=== PATIENT | male | born 1950 | race Caucasian/White ===

== ENCOUNTER 2023-12-14 13:33 | Emergency (ER) | payer MEDICARE, OTHER ==
[~2023-12-14] VITALS: Ht 175.3 cm; Wt 59.9 kg
[2023-12-14 13:33] VITALS: BP 155/57; PULSE 63; RESP 22; TEMP 98.5; O2SAT 88
[2023-12-14 14:07] LABS: HEMATOCRIT(ML) 32.2 % (37.0-53.0); MEAN CORP HGB 30.3 pg (26-34); MEAN CORP HGB CONCENTRATION 31.1 g/dL (33-36.5); MEAN CORP VOLUME 97.6 fL (78-100); RED BLOOD CELL 3.3 10^6/uL (4.50-5.90); RED CELL DISTRIBUTION WIDTH 17.2 % (11.5-14.5); WHITE BLOOD CELL 5.4 10^3/uL (4.5-11.0)
[2023-12-14 14:38] LABS: ALBUMIN(ML) 2.9 g/dL (3.4-5.0); ALBUMIN/GLOBULIN RATIO 0.725; ANION GAP 15.5; BUN/CREATININE RATIO 7.05 (10.0-20.0); CALCIUM 8.5 mg/dL (8.4-10.5); CARBON DIOXIDE 23.3 mmol/L (20.0-32); CREATININE SERUM 3.26 mg/dL (0.59-1.40); EST GFR, NON-AA 18.6 (>/=60); POTASSIUM 2.8 mmol/L (3.6-5.2)
[2023-12-14 15:39] LABS: APPEARANCE,URINE CLEAR; BILIRUBIN,URINE NEGATIVE (NEGATIVE); LEUKOCYTE ESTERASE ,URINE NEGATIVE (NEGATIVE); NITRATE,URINE NEGATIVE (NEGATIVE); UA COLOR YELLOW; UROBILINOGEN,URINE 0.2 E.U./dL (0.2)
[2023-12-14] MEDS ORDERED: ROCEPHIN ONE (15:45)
[2023-12-14] MEDS ORDERED: NS 1000ML/KCL 20MEQ 1,000 ML IV ONE (15:45)
[2023-12-14] MEDS ORDERED: KLOR-CON 10 PO ONE (15:45)
[2023-12-14 15:47] LABS: UAMPH METHAMP(SCRN) NEGATIVE (co1000ng/mL); UR MDMA (ECSTASY) SCRN NEGATIVE (c/o300ng/mL); UR METHADONE SCRN NEGATIVE (c/o300ng/mL); UR OPIATE SCRN NEGATIVE (c/o300ng/mL); UR PHENCYCLIDINE (PCP) SCRN NEGATIVE (c/o 25ng/mL); UR TETRAHYDROCANNABINOL SCRN NEGATIVE (c/o 50ng/mL)
[2023-12-14] MEDS: [UNRECOGNIZED DRUG - OTHER] IV SCH (15:50)
[2023-12-14] MEDS: NS IV SCH (15:50)
[2023-12-14] MEDS: NS 1000ML/KCL 20MEQ 1,000 ML IV STA (15:52)
[2023-12-14] MEDS: KLOR-CON 10 PO SCH (15:52)
[2023-12-14] MEDS: ROCEPHIN 1,000 MG in NS 100ML 100 ML IV STA (15:52)
[2023-12-14 15:53] VITALS: BP 123/51; PULSE 62; RESP 22; TEMP 98.5; O2SAT 88
[2023-12-14 16:33] VITALS: BP 123/51; PULSE 62; RESP 22; TEMP 98.5; O2SAT 88
== END 2023-12-14 16:45 | disposition short-term general hospital (02) ==
LOC: ER 13:33
DX: E87.6 Hypokalemia (principal); J18.9 Pneumonia, unspecified organism; J90 Pleural effusion, not elsewhere classified; I12.0 Hypertensive chronic kidney disease with stage 5 chronic kidney disease or end stage renal disease; N18.6 End stage renal disease; J44.9 Chronic obstructive pulmonary disease, unspecified; Z90.49 Acquired absence of other specified parts of digestive tract; Z95.1 Presence of aortocoronary bypass graft; Z99.2 Dependence on renal dialysis
CPT/HCPCS: 99285; 96365; 71045; 96368; 87086; 80053; 85027; 36415; 84484; 83605; 80307; 84145; 83880; 84100; 83735; 87077; 87186; 93005; 81001; J3490; J0696 ×2; 87040; J3480

== ENCOUNTER → 2024-01-13 | Outpatient (CLI) | payer MEDICARE, OTHER | END | disposition home or self-care (01) | LOC: NPLAB 10:28 | PROVIDERS: ATTEND Family Medicine | DX: Z79.899 Other long term (current) drug therapy (principal) | CPT/HCPCS: 36415; 84425 ==